=== PATIENT | male | born 1960 | race Caucasian/White ===

== ENCOUNTER 2022-03-03 19:33 | Emergency (ER) | payer BC ==
[2022-03-03] MEDS ORDERED: SODIUM CHLORIDE 0.9% 500 ML INFUS.BAG IV ONE (19:37)
[2022-03-03 19:39] VITALS: RESP 18; TEMP 97.8; BMI 28.9
[2022-03-03 20:18] LABS: HEMOGLOBIN 15.5 G/dL (11.7-16.9); MCH 31.6 pg (25.7-33.7); MCHC 35.1 g/dl (32.0-35.9); MEAN CELL VOLUME 89.9 fl (80-96); MEAN PLT VOLUME 6.9 fl (7.5-11.1); PLATELET COUNT 242.8 10^3/uL (134-434); RBC 4.89 10^6/uL (4.00-5.60); RDW 14.3 % (11.9-15.9); WHITE BLOOD COUNT 6.9 10^3/uL (4.0-10.8)
[2022-03-03 20:26] LABS: ALBUMIN 3.8 g/dl (3.4-5.0); BILIRUBIN,TOTAL 0.7 mg/dl (0.2-1); CALCIUM 8.8 mg/dl (8.5-10); CREATININE 1.3 mg/dl (0.55-1.3); MAGNESIUM 1.8 mg/dL (1.8-2.4); PHOSPHOROUS 3.9 mg/dl (2.5-4.9); TOT PROT 6.4 g/dl (6.4-8.2)
[2022-03-03] MEDS ORDERED: THIAMINE HCL 200 MG/2 ML VIAL IVPB ONE (21:30)
[2022-03-03 21:36] LABS: LACTIC ACID 2.5 mmol/L (0.4-2.0)
[2022-03-03] MEDS ORDERED: THIAMINE HCL 200 MG/2 ML VIAL ONE (21:45)
[2022-03-03] MEDS ORDERED: ACETAMINOPHEN 1000 MG/100 ML BAG IVPB ONE (22:25)
[2022-03-03] MEDS ORDERED: METHOCARBAMOL 500 MG TABLET PO ONE (22:25)
[2022-03-03 22:29] VITALS: BP 135/75; PULSE 58
== END 2022-03-03 23:45 | disposition home or self-care (01) ==
LOC: FER 19:33
PROC: 3E033GC Introduction of Other Therapeutic Substance into Peripheral Vein, Percutaneous Approach (ICD-10-PCS; principal; 2022-03-03)
DX: R55 Syncope and collapse (principal)
CPT/HCPCS: 36415; 70450-TC; 71046-TC-FY; 72125-TC; 80053; 82550; 83605; 83735; 84100; 84484; 85027; 93005; 99285-25